=== PATIENT | female | born 1980 | race Caucasian/White ===

== ENCOUNTER 2024-12-15 21:03 | Inpatient (IN) | payer OTHER, SELFPAY ==
[2024-12-15] VITALS (22 sets, daily range): BP systolic 96–137; BP diastolic 62–93; PULSE 111–151; TEMP 36.9–37.2; O2SAT 80–100; BMI 18.9
--- NOTE | 2024-12-15 21:31 | ECG_ITS ---
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
--- NOTE | 2024-12-15 21:41 | ED.SOB1 ---
HPI - SOB/Dyspnea General Chief Complaint: Shortness of Breath/Dyspnea Stated Complaint: SOB Time Seen by Provider: 12/15/24 21:17 History of Present Illness HPI Narrative: 44-year-old female to the emergency department with chief complaint of shortness of breath. Patient reports she has been sick with a cough, body aches, chills for the last 48 hours. She has had increasing shortness of breath through this time as well. She has had a mild cough which is nonproductive. She denies a history of asthma or COPD but has had shortness of breath responsive to albuterol in the past per her report. She has been using the albuterol inhaler that she was prescribed over the last 48 hours with initially relief of symptoms but today none. Past medical history: Denies Related Data Home Medications ?Medication ?Instructions ?Recorded ?Confirmed albuterol sulfate 90 mcg/actuation inhalation 12/15/24 aerosol inhaler Allergies Allergy/AdvReac Type Severity Reaction Status Date / Time No Known Drug Allergies Allergy Verified 12/15/24 21:39 Review of Systems ROS Status of ROS 10 or more systems reviewed and unremarkable except as noted in history and below PFSH PFSH Social History Little interest or pleasure in doing things: not at all Feeling down, depressed, or hopeless: not at all Exam Narrative Exam Narrative: VITALS: I have reviewed the triage vital signs. GENERAL: Adult female in respiratory distress NEURO: Alert and oriented. Moves all extremities. Face is symmetric and expressive. EYES: PERRL. No scleral icterus or conjunctival injection. No discharge. HENT: Normocephalic, atraumatic. Hearing is grossly intact. Nares grossly patent and without discharge. Mucous membranes moist. NECK: No JVD. Patient moves neck without restriction. CARDIO: Rhythm regular. Tachycardic. No murmur, rub, or gallop. Pulses equal bilaterally in the upper and lower extremity. No lower extremity edema. PULM: Decreased air movement. Moderate increased work of breathing. Moderate conversational dyspnea. GI/: Abdomen is soft and non-tender. Normoactive bowel sounds. EXTREMITIES: Symmetric muscle bulk. No joint swelling. No clubbing, cyanosis, or deformity. SKIN: Warm and dry. Normal turgor. No rash or lesions appreciated. PSYCH: Mood, affect, and interaction is appropriate to the setting. Constitutional Vital Signs, click to edit/add: Last Vital Signs Temp 98.9 F 12/15/24 23:25 Pulse 116 H 12/16/24 00:40 Resp 23 H 12/16/24 00:40 BP 103/79 12/16/24 00:30 Pulse Ox 94 L 12/16/24 00:40 O2 Del Method Nasal Cannula 12/15/24 21:48 O2 Flow Rate 2 12/15/24 23:25 Course Vital Signs Vital signs: Vital Signs Pulse Oximetry 80 L 12/15/24 21:14 Temperature 98.9 F 12/15/24 23:25 Pulse Rate 116 H 12/16/24 00:40 Respiratory Rate 23 H 12/16/24 00:40 Blood Pressure 103/79 12/16/24 00:30 Pulse Oximetry 94 L 12/16/24 00:40 Oxygen Delivery Method Nasal Cannula 12/15/24 21:48 Oxygen Delivery Flow Rate 2 12/15/24 23:25 MDM - SOB/Dyspnea MDM Narrative Medical decision making narrative: 44-year-old female to the emergency department chief complaint of shortness of breath. Tachycardic, tachypneic, hypoxic in the 80s on room air. The patient is afebrile. Recent URI type symptoms. It sounds as though she has had bronchodilator responsive shortness of breath in the past. Will try stacked DuoNeb treatment, Solu-Medrol. Lab work with troponin, BNP, chest x-ray, EKG is ordered. Blood gas ordered. Flu and COVID swab. Patient agrees with this plan. Lab work reviewed and noted. No major abnormalities. Her lactate is slightly elevated. Chest x-ray without acute findings. EKG without evidence of ischemia. Her troponin is negative. BNP is normal. ABG was reviewed, no significant hypercapnia or acidosis. CT of the chest was ordered to rule out pulmonary embolism. No acute findings on the CTA. Patient remains on 2 L nasal cannula. Patient reevaluated several times. She is moving air much better. She has no conversational dyspnea and her work of breathing has improved significantly. She now has some very trace wheezes. Case discussed with the hospitalist. Plan for admission to the hospital. The patient agrees with this plan. Working diagnosis of asthma exacerbation. Medical Records Attestation: I reviewed the patient's medical records. Lab Data Attestation: I reviewed the patient's lab results. Labs: Lab Results 12/15/24 12/15/24 12/15/24 Range/Units 21:30 21:33 22:09 WBC 6.9 (4.0-11.0) 10^3/uL RBC 4.91 (4.20-5.40) 10^6/uL Hgb 13.1 (12.0-16.0) g/dL Hct 40.7 (36.0-48.0) % MCV 82.9 (81.0-99.0) fL MCH 26.7 (26.7-34.0) pg MCHC 32.2 (29.9-35.2) g/dL RDW 17.1 H (11.0-15.0) % Plt Count 178 (150-450) 10^3/uL MPV 12.2 (9.5-13.5) fL Neut % (Auto) 73.6 (43.0-75.0) % Lymph % (Auto) 10.3 L (20.5-60.0) % [place] % (Auto) 15.6 H (1.7-12.0) % Eos % (Auto) 0.1 L (0.9-7.0) % Baso % (Auto) 0.3 (0.2-2.0) % Neut # (Auto) 5.1 (1.4-6.5) 10^3/uL Lymph # (Auto) 0.7 L (1.2-3.8) 10^3/uL [place] # (Auto) 1.1 H (0.3-0.8) 10^3/uL Eos # (Auto) 0.0 (0.0-0.7) 10^3/uL Baso # (Auto) 0.0 (0.0-0.1) 10^3/uL Abs Immat Gran (auto) 0.01 (0.00-0.03) 10^3/uL Imm/Tot Granulo (auto) 0.1 (0.0-0.5) % PT 12.0 H (9.0-11.6) sec INR 1.15 APTT 31.0 (22.3-36.2) sec Puncture Site R radial ABG pH 7.344 L (7.350-7.450) ABG pCO2 41.1 (35.0-45.0) mmHg ABG pO2 97.4 (80.0-100.0) mmHg ABG HCO3 22.4 (22.0-26.0) mmol/L ABG O2 Saturation 95.9 % ABG Base Excess -3.3 L (-2.0-2.0) mmol/L [place]on Test Positive (POSITIVE) O2 Liters/Min 2 Sodium 135 L (136-145) mmol/L Potassium 3.5 (3.5-5.1) mmol/L Chloride 100 (98-107) mmol/L Carbon Dioxide 27.3 (21.0-32.0) mmol/L Anion Gap 11.2 BUN 10.0 (7.0-18.0) mg/dL Creatinine 0.79 (0.55-1.02) mg/dL Est GFR ( Amer) >60 (>=60 mL/min/1.73m^2) Est GFR (Non-Af Amer) >60 (>=60 mL/min/1.73m^2) BUN/Creatinine Ratio 12.7 Glucose 118 H (74-106) mg/dL Lactate 2.2 H* (0.4-2.0) mmol/L Calcium 8.8 (8.5-10.1) mg/dL Troponin I High Sens <4.0 L (4.0-51.3) pg/mL NT-Pro-B Natriuret Pep 192.0 (<=450.0) pg/mL Serum HCG, Qual Negative (NEGATIVE) Influenza Type A Ag Negative Influenza Type B Ag Negative SARS-CoV-2 Ag (CV2AG) Negative (NEGATIVE) 12/15/24 Range/Units 23:31 WBC (4.0-11.0) 10^3/uL RBC (4.20-5.40) 10^6/uL Hgb (12.0-16.0) g/dL Hct (36.0-48.0) % MCV (81.0-99.0) fL MCH (26.7-34.0) pg MCHC (29.9-35.2) g/dL RDW (11.0-15.0) % Plt Count (150-450) 10^3/uL MPV (9.5-13.5) fL Neut % (Auto) (43.0-75.0) % Lymph % (Auto) (20.5-60.0) % [place] % (Auto) (1.7-12.0) % Eos % (Auto) (0.9-7.0) % Baso % (Auto) (0.2-2.0) % Neut # (Auto) (1.4-6.5) 10^3/uL Lymph # (Auto) (1.2-3.8) 10^3/uL [place] # (Auto) (0.3-0.8) 10^3/uL Eos # (Auto) (0.0-0.7) 10^3/uL Baso # (Auto) (0.0-0.1) 10^3/uL Abs Immat Gran (auto) (0.00-0.03) 10^3/uL Imm/Tot Granulo (auto) (0.0-0.5) % PT (9.0-11.6) sec INR APTT (22.3-36.2) sec Puncture Site ABG pH (7.350-7.450) ABG pCO2 (35.0-45.0) mmHg ABG pO2 (80.0-100.0) mmHg ABG HCO3 (22.0-26.0) mmol/L ABG O2 Saturation % ABG Base Excess (-2.0-2.0) mmol/L Weston Test (POSITIVE) O2 Liters/Min Sodium (136-145) mmol/L Potassium (3.5-5.1) mmol/L Chloride (98-107) mmol/L Carbon Dioxide (21.0-32.0) mmol/L Anion Gap BUN (7.0-18.0) mg/dL Creatinine (0.55-1.02) mg/dL Est GFR ( Amer) (>=60 mL/min/1.73m^2) Est GFR (Non-Af Amer) (>=60 mL/min/1.73m^2) BUN/Creatinine Ratio Glucose (74-106) mg/dL Lactate 2.9 H* (0.4-2.0) mmol/L Calcium (8.5-10.1) mg/dL Troponin I High Sens (4.0-51.3) pg/mL NT-Pro-B Natriuret Pep (<=450.0) pg/mL Serum HCG, Qual (NEGATIVE) Influenza Type A Ag Influenza Type B Ag SARS-CoV-2 Ag (CV2AG) (NEGATIVE) ABG Data Attestation: I have reviewed the pertinent ABG results. Imaging Data CT scan - chest: Attestation: I have reviewed the pertinent imaging results. Radiologist's impression: Uploaded into PACS system ECG Data Attestation: I personally reviewed and interpreted this ECG as follows: (Sinus tachycardia rate of 117. No STEMI. Normal QTc at 375.) Critical Care Time Critical Care Time Critical Care Time: Yes Total Critical Care Time: 35 Attestation: Critical Care Procedure Note Authorized and Performed by: Rodrigo Sherwood DO Total critical care time: 35 min Due to a high probability of clinically significant, life threatening deterioration, the patient required my highest level of preparedness to intervene emergently and I personally spent this critical care time directly and personally managing the patient. This critical care time included obtaining a history; examining the patient; pulse oximetry; ordering and review of studies; arranging urgent treatment with development of a management plan; evaluation of patient's response to treatment; frequent reassessment; and, discussions with other providers. This critical care time was performed to assess and manage the high probability of imminent, life-threatening deterioration that could result in multi-organ failure. It was exclusive of separately billable procedures and treating other patients and teaching time. Please see MDM section and the rest of the note for further information on patient assessment and treatment. Discharge Plan Discharge Chief Complaint: Shortness of Breath/Dyspnea Clinical Impression: Acute hypoxemic respiratory failure, Asthma exacerbation Patient Disposition: Admitted as Observation Time of Disposition Decision: 01:20 Condition: Fair Prescriptions / Home Meds: No Action albuterol sulfate 90 mcg/actuation HFA aerosol inhaler INHALATION Print Language: Armenian Referrals: Physician,Non-Staff, MD [Primary Care Provider] - 1 week
[2024-12-15 21:45] LABS: Basophils Percent Auto 0.3 % (0.2-2.0); Eosinophils Percent Auto 0.1 % (0.9-7.0); Hematocrit 40.7 % (36.0-48.0); Hemoglobin 13.1 g/dL (12.0-16.0); Immature Granulocytes Abs Auto 0.01 10^3/uL (0.00-0.03); Immature Granulocytes Pct Auto 0.1 % (0.0-0.5); Lymphocytes Absolute Auto 0.7 10^3/uL (1.2-3.8); Lymphocytes Percent Auto 10.3 % (20.5-60.0); Mean Corpuscular HGB Conc 32.2 g/dL (29.9-35.2); Mean Corpuscular Hemoglobin 26.7 pg (26.7-34.0); Mean Corpuscular Volume 82.9 fL (81.0-99.0); Mean Platelet Volume 12.2 fL (9.5-13.5); Monocytes Absolute Auto 1.1 10^3/uL (0.3-0.8); Monocytes Percent Auto 15.6 % (1.7-12.0); Neutrophils Absolute Auto 5.1 10^3/uL (1.4-6.5); Neutrophils Percent Auto 73.6 % (43.0-75.0); Platelet Count 178 10^3/uL (150-450); Red Blood Count 4.91 10^6/uL (4.20-5.40); Red Cell Distribution Width 17.1 % (11.0-15.0); White Blood Count 6.9 10^3/uL (4.0-11.0)
--- NOTE | 2024-12-15 21:45 | PC.NURSE ---
this patient complains of shortness of breath, fever,body aches, cough onset 2 days ago, swabs x 2 collected and iv started with blood draw
[2024-12-15] MEDS: IPRATROPIUM/ALBUTEROL SULFATE 3 ML AMPUL.NEB 9 ML IH (21:48)
[2024-12-15 21:56] LABS: HCG Qualitative NEGATIVE (NEGATIVE); Internal Control Within Normal Limits
[2024-12-15 21:57] LABS: Anion Gap 11.2; BUN Creatinine Ratio 12.7; Calcium 8.8 mg/dL (8.5-10.1); Carbon Dioxide 27.3 mmol/L (21.0-32.0); Chloride 100 mmol/L (98-107); Estimated GFR (African America >60 (>=60 mL/min/1.73m^2); Estimated GFR (Non-African Ame >60 (>=60 mL/min/1.73m^2); Glucose 118 mg/dL (74-106); Potassium 3.5 mmol/L (3.5-5.1); Sodium 135 mmol/L (136-145)
[2024-12-15 22:04] LABS: Influenza Virus A Antigen Negative; Influenza Virus B Antigen Negative; Internal Control Within Normal Limits; SARS-CoV-2 Ag NEGATIVE (NEGATIVE)
[2024-12-15] MEDS: METHYLPREDNISOLONE SOD SUCC PF 125 MG/2 ML VIAL IVP (22:04)
[2024-12-15 22:08] LABS: Troponin I High Sensitivity <4.0 pg/mL (4.0-51.3)
[2024-12-15 22:13] LABS: INR 1.15; Lactate/Lactic Acid 2.2 mmol/L (0.4-2.0)
[2024-12-15 22:17] LABS: pH ABG 7.344 (7.350-7.450)
[2024-12-15 22:18] LABS: ABG PCO2 41.1 mmHg (35.0-45.0); Allen Test POSITIVE (POSITIVE); Base Excess ABG -3.3 mmol/L (-2.0-2.0); HCO3 ABG 22.4 mmol/L (22.0-26.0); Liters per Minute 2; O2 Mode NASAL CANNULA; Oxygen Saturation ABG 95.9 %; PO2 ABG 97.4 mmHg (80.0-100.0); Puncture Site R RADIAL
--- NOTE | 2024-12-15 22:57 | PC.NURSE ---
this patient awake and alert sitting upright on the bed, this patient said that she feels a little better. i did tell of the new order placed by Dr Sherwood. this patient voices no concerns and shows no signs of distress
[2024-12-16] VITALS (33 sets, daily range): BP systolic 100–146; BP diastolic 66–79; PULSE 87–124; TEMP 36.4–36.9; O2SAT 91–98; BMI 18.5
[2024-12-16 00:06] LABS: Lactate/Lactic Acid 2.9 mmol/L (0.4-2.0)
--- NOTE | 2024-12-16 00:44 | PC.NURSE ---
this patient sitting upright on the bed awake and alert, this patient says I am feeling better now patient aware that still waiting on ct results to come back this patient voices no concerns and shows no signs of distress
[2024-12-16 01:49] LABS: Internal Control Within Normal Limits; Respiratory Syncytial Virus Not Detected (NOT DETECTE)
--- NOTE | 2024-12-16 01:49 | PC.NURSE ---
this patient was transferred upstairs to room 218, this patient was awake and alert and voices no concerns and shows no signs of distress
[2024-12-16 06:35] LABS: Basophils Percent Auto 0.2 % (0.2-2.0); Hemoglobin 12.2 g/dL (12.0-16.0); Lymphocytes Absolute Auto 0.4 10^3/uL (1.2-3.8); Lymphocytes Percent Auto 7.3 % (20.5-60.0); Mean Corpuscular HGB Conc 32.1 g/dL (29.9-35.2); Mean Corpuscular Volume 80.9 fL (81.0-99.0); Mean Platelet Volume 12.2 fL (9.5-13.5); Monocytes Absolute Auto 0.4 10^3/uL (0.3-0.8); Monocytes Percent Auto 7.7 % (1.7-12.0); Neutrophils Absolute Auto 4.5 10^3/uL (1.4-6.5); Neutrophils Percent Auto 84.8 % (43.0-75.0); Platelet Count 181 10^3/uL (150-450); Red Cell Distribution Width 17.2 % (11.0-15.0); White Blood Count 5.3 10^3/uL (4.0-11.0)
[2024-12-16 06:48] LABS: Calcium 8.9 mg/dL (8.5-10.1); Carbon Dioxide 25.1 mmol/L (21.0-32.0); Chloride 100 mmol/L (98-107); Estimated GFR (African America >60 (>=60 mL/min/1.73m^2); Estimated GFR (Non-African Ame >60 (>=60 mL/min/1.73m^2); Glucose 141 mg/dL (74-106); Magnesium 2.1 mg/dL (1.8-2.4); Potassium 4.1 mmol/L (3.5-5.1); Sodium 135 mmol/L (136-145)
[2024-12-16] MEDS: METHYLPREDNISOLONE SOD SUCC PF 40 MG/ML VIAL IVP ×3 (08:28→20:17)
--- NOTE | 2024-12-16 08:36 | P.HP_ITS ---
HPI H&P: HPI History of Present Illness Chief complaint: ASTHMA EXACERBATION, ACUTE HYPOXEMIC RESP. FAILURE Narrative: 44-year-old female to the emergency department with chief complaint of shortness of breath. She is a former smoker quite 6 years ago. Patient reports she has been sick with a cough, body aches, chills for the last 48 hours. She has a history of asthma that has been responsive to albuterol when she gets sick. She has been using the albuterol inhaler that she was prescribed before without resolution of symptoms. She states her child recently had a cold. She is not on oxygen at home. ER Findings: Tachycardic, tachypneic, hypoxic in the 80s on room air. The patient is afebrile. Was given stacked DuoNeb treatment, Solu-Medrol. Her lactate is slightly elevated 2.2 then 2.9. Chest x-ray without acute findings. EKG without evidence of ischemia. Her troponin is negative <4. BNP is normal 192. ABG was reviewed, no significant hypercapnia or acidosis. CT of the chest was ordered to rule out pulmonary embolism. No acute findings on the CTA. Patient remains on 2 L nasal cannula. WBC's 5.3. Flu/covid and RSV negative Opioid HPI Opioid Management Most Recent Pain and Opioid Data: Last Pain Assessment 12/16/24 11:13 Last ORT Total Score 1 12/16/24 01:46 12/16/24 Last ORT Risk Category Low Risk 12/16/24 01:46 12/16/24 Review of Systems ROS Narrative ROS: a complete review of systems were reviewed with patient and are positive as below or listed in History of Chief Complaint. General: fever, chills, night sweats Head: no headache, trauma, visual changes, nausea or vomiting Skin: no reported rashes, itching or sores Eyes: no blurriness of vision Ears: no reported hearing loss, vertigo, earache, or tinnitus Throat: no sore throat, hoarseness, swelling of neck, or tongue pain Heart: no chest pain Lungs: shortness of breath and cough GI: diarrhea no vomiting/nausea Urinary: no urinary urgency, frequency or pain Neuro: no numbness or tingling HEM: no bleeding issues or bruising ENDO: no thyroid problems Psych: no anxiety or depression PFSH PFS Family History (Updated 12/16/24 @ 01:51 by Sarina Chapman RN) Other Family history of cancer Social History (Updated 12/16/24 @ 01:52 by Sarina Chapman RN) Within the past year, how often did you have a drink containing alcohol: monthly or less Within the past year, how many standard drinks containing alcohol did you have on a typical day: 1 or 2 Within the past year, how often did you have six or more drinks on one occasion: never Total score: 0 Score interpretation: A score less than 3 is consistent with normal alcohol consumption. Smoking status: Former smoker Non-prescribed substance use: denies use Highest level of school completed/degree received: high school graduate Are you now , , , , never or living with a partner: living with partner In a typical week, how many times do you talk on the telephone with family, friends, or neighbors: 3 or more times per week How often do you get together with friends or relatives: 3 or more times per week Little interest or pleasure in doing things: not at all Feeling down, depressed, or hopeless: not at all Do you think of yourself as: straight/heterosexual Gender Identity: female Meds Home Medications and Allergies Home Medications ?Medication ?Instructions ?Recorded ?Confirmed ?Type albuterol sulfate 90 mcg/actuation 2 puff inhalation Q4H PRN 12/15/24 12/16/24 History aerosol inhaler shortness of breath or wheezing Allergies Allergy/AdvReac Type Severity Reaction Status Date / Time No Known Drug Allergies Allergy Verified 12/15/24 21:39 Exam Narrative Exam Narrative: General: Patient is alert, and oriented to person, place and time with normal affect, very short of breath with conversing, Tripoding on bed with heavy breathing through the nose Skin: no visible rashes, or ulcers Head: atraumatic, acephalic Eyes: PERRLA, no nystagmus present, conjunctiva clear, no scleral icterus Ears: normal gross auditory acuity Heart: Normal rate and rhythm, no murmurs/rubs/gallops Lungs: audible wheezes, no crackles Abdomen: Normal audible bowel sounds, no distension, No palpable masses, no organomegaly, no rebound/guarding/ or rigidity Musculoskeletal: no swelling bilateral lower extremities Neuro: CN II-X grossly intact Constitutional Vital Signs, click to edit/add: Last Vital Signs Temp 98.1 F 12/16/24 08:18 Pulse 109 H 12/16/24 08:18 Resp 20 12/16/24 08:18 BP 104/75 12/16/24 08:18 Pulse Ox 92 L 12/16/24 08:18 O2 Del Method Nasal Cannula 12/16/24 08:18 O2 Flow Rate 2 12/16/24 08:18 Results Labs Labs: Short CBC 12/15/24 12/16/24 Range/Units 21:30 06:11 WBC 6.9 5.3 (4.0-11.0) 10^3/uL Hgb 13.1 12.2 (12.0-16.0) g/dL Hct 40.7 38.0 (36.0-48.0) % Plt Count 178 181 (150-450) 10^3/uL BMP 12/15/24 12/16/24 21:30 06:11 Sodium 135 L 135 L Potassium 3.5 4.1 Chloride 100 100 Carbon Dioxide 27.3 25.1 BUN 10.0 9.0 Creatinine 0.79 0.53 L Glucose 118 H 141 H Calcium 8.8 8.9 ABG ABG results: 12/15/24 22:09 ABG pH 7.344 L ABG pCO2 41.1 ABG pO2 97.4 ABG HCO3 22.4 ABG O2 Saturation 95.9 ABG Base Excess -3.3 L Assessment and Plan Assessment and Plan (1) Asthma exacerbation: Assessment and Plan: start pulmicort nebs, duonebs scheduled and PRN albuterol. Continue with Solu- Medrol 40mg q6 hours IV, I have added Azithromycin and Rocephin for possible superimposed COPD exacerbation given her long smoking history. OPEP. Normal magnesium Qualifiers: Asthma persistence: persistent Asthma severity: severe Qualified Code(s): J45.51 - Severe persistent asthma with (acute) exacerbation (2) Acute hypoxemic respiratory failure: Assessment and Plan: secondary to #1, CTA negative for acute PE, Viral testing negative for flu/covid/rsv. Documented oxygen saturations to 80's on room air, requiring 2l via NC oxygen to maintain saturations >90%; normal cariac enzymes (3) Lactic acid acidosis: Assessment and Plan: elevated lactate secondary to #1, Added LR @125 Plan Patient is a full code continue Lovenox for DVT prophylaxis Patient is inpatient status and is expected to stay 2-3 days for her acute asthma exacerbation with respiratory failure
[2024-12-16] MEDS: LACTATED RINGER'S SOLUTION 1,000 ML 125 ML IV ×2 (10:03→19:22)
[2024-12-16] MEDS: AZITHROMYCIN 500 MG in 0.9 % SODIUM CHLORIDE 250 ML 250 MG IV (10:04)
[2024-12-16] MEDS: CEFTRIAXONE 1,000 MG in 0.9 % SODIUM CHLORIDE 50 ML 100 MG IV (10:04)
[2024-12-16] MEDS: BUDESONIDE 0.5 MG/2 ML AMPULE NEB IH ×2 (10:24→22:44)
[2024-12-16] MEDS: IPRATROPIUM/ALBUTEROL SULFATE 3 ML AMPUL.NEB IH ×3 (10:24→22:44)
--- NOTE | 2024-12-16 12:01 | CM.NOTE ---
Rounds made with Dr. Henning. Dr. Henning reviews plan of care. Ms. Ramirez verbalizes understanding.
--- NOTE | 2024-12-16 13:15 | SWNOTE1 ---
Pt is on 2 liters of oxygen here at hospital at this time, no oxygen at home.
[2024-12-16 22:39] LABS: A. calcoaceticus-baumannii Cpx NOT DETECTED (NOT DETECTE); Bacteroides fragilis NOT DETECTED (NOT DETECTE); Candida albicans NOT DETECTED (NOT DETECTE); Candida auris NOT DETECTED (NOT DETECTE); Candida glabrata NOT DETECTED (NOT DETECTE); Candida krusei NOT DETECTED (NOT DETECTE); Candida parapsilosis NOT DETECTED (NOT DETECTE); Candida tropicalis NOT DETECTED (NOT DETECTE); Cryptococcus neoformans/gattii NOT DETECTED (NOT DETECTE); Enterobacter cloacae complex NOT DETECTED (NOT DETECTE); Enterobacterales NOT DETECTED (NOT DETECTE); Enterococcus faecalis NOT DETECTED (NOT DETECTE); Enterococcus faecium NOT DETECTED (NOT DETECTE); Haemophilus influenzae NOT DETECTED (NOT DETECTE); Klebsiella aerogenes NOT DETECTED (NOT DETECTE); Klebsiella pneumoniae group NOT DETECTED (NOT DETECTE); Listeria monocytogenes NOT DETECTED (NOT DETECTE); Neisseria meningitidis NOT DETECTED (NOT DETECTE); Proteus spp. NOT DETECTED (NOT DETECTE); Pseudomonas aeruginosa NOT DETECTED (NOT DETECTE); Salmonella spp. NOT DETECTED (NOT DETECTE); Serratia marcescens NOT DETECTED (NOT DETECTE); Staphylococcus epidermidis NOT DETECTED (NOT DETECTE); Staphylococcus lugdunensis NOT DETECTED (NOT DETECTE); Stenotrophomonas maltophilia NOT DETECTED (NOT DETECTE); Streptococcus agalactiae NOT DETECTED (NOT DETECTE); Streptococcus pneumoniae NOT DETECTED (NOT DETECTE); Streptococcus pyogenes NOT DETECTED (NOT DETECTE); Streptococcus spp. NOT DETECTED (NOT DETECTE)
[2024-12-17] VITALS (21 sets, daily range): BP systolic 107–134; BP diastolic 66–79; PULSE 78–112; TEMP 36.4–37.1; O2SAT 89–94
[2024-12-17 00:02] LABS: Staphylococcus spp. DETECTED (NOT DETECTE)
[2024-12-17 00:03] LABS: Source Blood
[2024-12-17] MEDS: METHYLPREDNISOLONE SOD SUCC PF 40 MG/ML VIAL IVP ×4 (02:09→19:50)
[2024-12-17] MEDS: LACTATED RINGER'S SOLUTION 1,000 ML 125 ML IV (03:25)
[2024-12-17] MEDS: IPRATROPIUM/ALBUTEROL SULFATE 3 ML AMPUL.NEB IH ×4 (04:38→22:50)
[2024-12-17 05:44] LABS: Basophils Percent Auto 0.1 % (0.2-2.0); Eosinophils Percent Auto 0.1 % (0.9-7.0); Hematocrit 35.7 % (36.0-48.0); Hemoglobin 11.1 g/dL (12.0-16.0); Immature Granulocytes Abs Auto 0.03 10^3/uL (0.00-0.03); Immature Granulocytes Pct Auto 0.3 % (0.0-0.5); Lymphocytes Absolute Auto 0.7 10^3/uL (1.2-3.8); Lymphocytes Percent Auto 6.5 % (20.5-60.0); Mean Corpuscular HGB Conc 31.1 g/dL (29.9-35.2); Mean Corpuscular Hemoglobin 25.8 pg (26.7-34.0); Mean Corpuscular Volume 82.8 fL (81.0-99.0); Monocytes Absolute Auto 0.4 10^3/uL (0.3-0.8); Monocytes Percent Auto 3.7 % (1.7-12.0); Neutrophils Absolute Auto 9.9 10^3/uL (1.4-6.5); Neutrophils Percent Auto 89.3 % (43.0-75.0); Platelet Count 201 10^3/uL (150-450); Red Blood Count 4.31 10^6/uL (4.20-5.40); Red Cell Distribution Width 17.2 % (11.0-15.0)
[2024-12-17 05:55] LABS: Anion Gap 13.5; BUN Creatinine Ratio 19.4; Carbon Dioxide 26.1 mmol/L (21.0-32.0); Chloride 104 mmol/L (98-107); Estimated GFR (African America >60 (>=60 mL/min/1.73m^2); Estimated GFR (Non-African Ame >60 (>=60 mL/min/1.73m^2); Glucose 143 mg/dL (74-106); Magnesium 2.1 mg/dL (1.8-2.4); Potassium 3.6 mmol/L (3.5-5.1); Sodium 140 mmol/L (136-145)
--- NOTE | 2024-12-17 07:57 | PM.PN ---
Progress Note: Subjective Subjective Interval history: Patient feels better than yesterday. Less short of breath with exertion and rest. She denies fevers. Less coughing. No other complaints. Exam Narrative Exam Narrative: General: Patient is alert, and oriented to person, place and time with normal affect, proper hygiene Skin: no visible rashes, or ulcers Head: atraumatic, acephalic Eyes: PERRLA, no nystagmus present, conjunctiva clear, no scleral icterus Ears: normal gross auditory acuity Heart: Normal rate and rhythm, no murmurs/rubs/gallops Lungs: audible wheezes Abdomen: Normal audible bowel sounds, no distension, No palpable masses, no organomegaly, no rebound/guarding/ or rigidity Musculoskeletal: no swelling bilateral lower extremities Neuro: CN II-X grossly intact Constitutional Vital Signs, click to edit/add: Last Vital Signs Temp 98.0 F 12/17/24 03:03 Pulse 112 H 12/17/24 07:55 Resp 18 12/17/24 04:38 BP 110/73 12/17/24 03:03 Pulse Ox 93 L 12/17/24 04:38 O2 Del Method Nasal Cannula 12/17/24 04:38 O2 Flow Rate 1 12/17/24 04:38 Progress Note: Objective Labs Labs: Short CBC 12/17/24 Range/Units 05:13 WBC 11.0 (4.0-11.0) 10^3/uL Hgb 11.1 L (12.0-16.0) g/dL Hct 35.7 L (36.0-48.0) % Plt Count 201 (150-450) 10^3/uL BMP 12/17/24 05:13 Sodium 140 Potassium 3.6 Chloride 104 Carbon Dioxide 26.1 BUN 13.0 Creatinine 0.67 Glucose 143 H Calcium 9.0 Progress Note: A&P Assessment and Plan (1) Asthma exacerbation: Assessment and Plan: pulmicort nebs, duonebs scheduled and PRN albuterol. Continue with Solu-Medrol 40mg q6 hours IV, continue Azithromycin and Rocephin for possible superimposed COPD exacerbation given her long smoking history. OPEP. Normal magnesium Qualifiers: Asthma persistence: persistent Asthma severity: severe Qualified Code(s): J45.51 - Severe persistent asthma with (acute) exacerbation (2) Acute hypoxemic respiratory failure: Assessment and Plan: secondary to #1, CTA negative for acute PE, Viral testing negative for flu/covid/rsv. Documented oxygen saturations to 80's on room air, requiring 1l via NC oxygen to maintain saturations >90%; normal cardiac enzymes (3) Lactic acid acidosis: Assessment and Plan: improved with IVF, stop fluids (4) Bacteremia due to Staphylococcus: Assessment and Plan: positive rapid blood culture, awaiting sensitivites, positive for staph sp; On rocephin will switch to Ancef 2g every 8 hours . Could also be skin contaminant on blood culture given 1/2 bottles; will check Echo Plan Patient is a full code continue Lovenox for DVT prophylaxis Patient will likely require 1-2 more days of hospital necessary care
--- NOTE | 2024-12-17 08:45 | CM.NOTE ---
Rounds made with Dr. Henning, pt continues to require 1L NC. Pt is up ad tobi in room, no discharge today. RN at bedside and will attempt to wean pt off oxygen.
[2024-12-17] MEDS: CEFTRIAXONE 1,000 MG in 0.9 % SODIUM CHLORIDE 50 ML 100 MG IV (09:29)
--- NOTE | 2024-12-17 09:30 | CA_ITS ---
Patient Name: LUCIANO ORNELAS MR#: [id number] : 1980 Exam Date: 12/17/2024 Ordering Doctor: POWER HACKETT . ECHOCARDIOGRAM REPORT PROCEDURE: CA ECHO DOPPLER COMPLETE INDICATIONS: bacteremia, hypoxia COMPARISON: None. DESCRIPTION: COMPLETE ECHOCARDIOGRAM Real-time transthoracic echocardiography with 2D, M-mode, spectral and color flow Doppler performed. QUALITY: Technical quality was good. LEFT VENTRICLE: Normal chamber size. Normal left ventricular wall thickness. Global left ventricular systolic function is normal. LV EF: Estimated left ventricular ejection fraction is 60-65%. DIASTOLIC: Normal diastolic function. ATRIAL SEPTUM: LEFT ATRIUM: Normal chamber size. RIGHT ATRIUM: Normal chamber size. RIGHT VENTRICLE: Normal chamber size. Normal right ventricular systolic function. TRICUSPID VALVE: Normal mobility and thickness. No vegetations are present. No stenosis with no regurgitation. No evidence of pulmonary hypertension. RVSP 23 mmHg MITRAL VALVE: Normal mobility and thickness. No vegetations are present. No evidence of mitral valve stenosis. There is no mitral annular calcification. No mitral regurgitation. AORTIC VALVE: Normal trileaflet appearance. No visible sclerosis. Normal leaflet mobility. No vegetations are present. No evidence of aortic valve stenosis. No aortic regurgitation. AORTIC ROOT: Normal diameter and appearance. PULMONIC VALVE: Normal thickness and mobility. No stenosis. No regurgitation. No vegetations are present. PERICARDIUM: Small to moderate anterior pericardial effusion. IVC: Collapses with inspirations. Normal size. PLEURA: CONCLUSION: 1. Normal ventricular size and systolic function. LVEF is 60-65%. 2. Normal diastolic function. 3. No significant valvular dysfunction. 4. Normal right sided pressures. 5. Small to moderate anterior pericardial effusion. Adult Echocardiography Procedure Report Left Ventricle LVEDD (3.7 - 5.6 cm): 4.40 cm LVESD (2.2 - 4.0 cm): 3.03 cm LVIVS thickness (0.6 - 1.2 cm): 0.73 cm LVPW thickness (0.5 - 1.0 cm): 0.75 cm e': 0.13 m/s E - e': 4.99 LVOT Max Gradient: 4.19 mm[Hg] LVOT Area (cm2): 1.02 m/s Peak Velocity (LVOT): 1.02 m/s Mean Velocity (LVOT): 0.68 m/s LVOT Diameter 1.86 cm Left Atrium LA Volume Index (2D A2C): 30.74 ml/m2 Left Atrium Systolic Dimension: 2.68 cm Mitral Valve MV E to A Ratio: 1.01 Mitral Valve A-Wave Peak Velocity: 0.63 m/s Mitral Valve E-Wave Peak Velocity: 0.64 m/s Right Ventricle RV Internal Diastolic Dimension: 2.85 cm Aorta AO Root Diam: 3.30 cm Ascending Ao Diam: 2.55 cm Aortic Valve AoV Area (Peak Patrick): 2.20 cm2, 2.20 cm2 AoV Area (VTI): 2.33 cm2, 2.33 cm2 Peak Velocity(Antegrade Flow): 1.26 m/s Peak Gradient(Antegrade Flow): 6.34 mm[Hg] Mean Velocity(Antegrade Flow): 0.88 m/s Mean Gradient(Antegrade Flow): 3.45 mm[Hg] Velocity Time Integral: 25.91 cm Tricuspid Valve Peak Velocity (Regurgitant Flow): 2.26 m/s Pulmonic Valve Mean Gradient: 1.56 mm[Hg], 1.56 mm[Hg], 1.72 mm[Hg] Mean Velocity: 0.59 m/s, 0.60 m/s, 0.63 m/s Peak Velocity: 0.80 m/s, 0.79 m/s Peak Gradient: 2.61 mm[Hg], 2.43 mm[Hg], 2.61 mm[Hg], 2.48 mm[Hg] Right Atrium Right Atrium Systolic Pressure: 21.62 ml, 21.62 ml Dictated by: Michelet Webb M.D. on 12/17/2024 at 18:36 Approved by: Michelet Webb M.D. on 12/17/2024 at 18:40
[2024-12-17] MEDS: CEFAZOLIN SODIUM/DEXTROSE,ISO 2 GM/50 ML PIGGYBACK IV ×2 (10:32→17:25)
[2024-12-17] MEDS: BUDESONIDE 0.5 MG/2 ML AMPULE NEB IH ×2 (10:52→22:50)
[2024-12-17] MEDS: AZITHROMYCIN 500 MG in 0.9 % SODIUM CHLORIDE 250 ML 250 MG IV (11:17)
[2024-12-18] VITALS (7 sets, daily range): BP systolic 112–115; BP diastolic 68–69; PULSE 65–105; TEMP 36.6–36.8; O2SAT 92–93
[2024-12-18] MEDS: METHYLPREDNISOLONE SOD SUCC PF 40 MG/ML VIAL IVP ×2 (03:55→08:37)
[2024-12-18] MEDS: CEFAZOLIN SODIUM/DEXTROSE,ISO 2 GM/50 ML PIGGYBACK IV ×2 (03:55→09:14)
[2024-12-18] MEDS: IPRATROPIUM/ALBUTEROL SULFATE 3 ML AMPUL.NEB IH (05:45)
[2024-12-18 06:01] LABS: Hematocrit 30.9 % (36.0-48.0); Hemoglobin 9.8 g/dL (12.0-16.0); Immature Granulocytes Abs Auto 0.05 10^3/uL (0.00-0.03); Immature Granulocytes Pct Auto 0.4 % (0.0-0.5); Lymphocytes Absolute Auto 0.8 10^3/uL (1.2-3.8); Lymphocytes Percent Auto 7.5 % (20.5-60.0); Mean Corpuscular HGB Conc 31.7 g/dL (29.9-35.2); Mean Corpuscular Hemoglobin 26.2 pg (26.7-34.0); Mean Corpuscular Volume 82.6 fL (81.0-99.0); Monocytes Absolute Auto 0.6 10^3/uL (0.3-0.8); Neutrophils Absolute Auto 9.7 10^3/uL (1.4-6.5); Neutrophils Percent Auto 87.1 % (43.0-75.0); Platelet Count 202 10^3/uL (150-450); Red Blood Count 3.74 10^6/uL (4.20-5.40); Red Cell Distribution Width 17.6 % (11.0-15.0); White Blood Count 11.1 10^3/uL (4.0-11.0)
[2024-12-18 06:25] LABS: Anion Gap 12.8; BUN Creatinine Ratio 21.7; Calcium 8.7 mg/dL (8.5-10.1); Carbon Dioxide 25.9 mmol/L (21.0-32.0); Chloride 106 mmol/L (98-107); Estimated GFR (African America >60 (>=60 mL/min/1.73m^2); Estimated GFR (Non-African Ame >60 (>=60 mL/min/1.73m^2); Glucose 125 mg/dL (74-106); Magnesium 2.3 mg/dL (1.8-2.4); Potassium 3.7 mmol/L (3.5-5.1); Sodium 141 mmol/L (136-145)
[2024-12-18] MEDS: AZITHROMYCIN 500 MG in 0.9 % SODIUM CHLORIDE 250 ML 250 MG IV (09:15)
--- NOTE | 2024-12-18 09:15 | PM.DS1 ---
DS: Providers Provider Date of admission: 12/16/24 09:00 Primary care physician: Non-Staff PhysicianMD DS: Diagnosis Discharge Diagnosis (1) Asthma exacerbation: Qualifiers: Asthma persistence: persistent Asthma severity: severe Qualified Code(s): J45.51 - Severe persistent asthma with (acute) exacerbation (2) Acute hypoxemic respiratory failure: (3) Lactic acid acidosis: (4) Bacteremia due to Staphylococcus: Plan (1) Asthma exacerbation: Being at the time of discharge (2) Acute hypoxemic respiratory failure: Resolved at the time of discharge (3) Lactic acid acidosis: Improved at the time of discharge (4) Bacteremia due to Staphylococcus: Specificity not returned at the time of discharge, possible contaminant (5) hyponatremia-improved at the time of discharge (6) drug-induced hyperglycemia-improved at the time of discharge DS: Summary Hospital Course Hospital Course: Patient has a history of asthma, admitted with acute exacerbation of asthma and acute hypoxia requiring at least 2 L of supplemental oxygenation he was given IV antibiotics, steroids, aerosol treatments, she is improving at the time of discharge, she has been able to wean off of supplemental oxygen over the last 12 hours, at this point if she ambulates in the hallways without hypoxia she will be discharged home in improving condition. Medications see list. Can follow-up with me in the office if she is looking to establish with a new provider Time Spent with Patient Time attestation: Total time spent providing and/or coordinating discharge services: Exam Constitutional Vital Signs, click to edit/add: Last Vital Signs Temp 98.3 F 12/18/24 08:03 Pulse 82 12/18/24 08:03 Resp 16 12/18/24 08:03 BP 115/69 12/18/24 08:03 Pulse Ox 93 L 12/18/24 08:03 O2 Del Method Room Air 12/18/24 08:03 O2 Flow Rate 1 12/17/24 16:25 Documenting provider has reviewed patient's vital signs: yes Common normals: no apparent distress Lymph Lymphatic: no lymphadenopathy noted Chest Common normals: inspection of chest normal and palpation of chest normal Respiratory Common normals: normal respiratory effort and no retractions Cardio Common normals: regular rate and regular rhythm GI Common normals: Normal to inspection, nondistended, normoactive bowel sounds present and soft to palpation DS: Data Data Completed and Pending Labs on day of discharge: Labs from last 24 hours 12/18/24 05:48 WBC 11.1 H RBC 3.74 L Hgb 9.8 L Hct 30.9 L MCV 82.6 MCH 26.2 L MCHC 31.7 RDW 17.6 H Plt Count 202 MPV 12.0 Neut % (Auto) 87.1 H Lymph % (Auto) 7.5 L [place] % (Auto) 5.0 Eos % (Auto) 0.0 L Baso % (Auto) 0.0 L Neut # (Auto) 9.7 H Lymph # (Auto) 0.8 L [place] # (Auto) 0.6 Eos # (Auto) 0.0 Baso # (Auto) 0.0 Abs Immat Gran (auto) 0.05 H Imm/Tot Granulo (auto) 0.4 Sodium 141 Potassium 3.7 Chloride 106 Carbon Dioxide 25.9 Anion Gap 12.8 BUN 13.0 Creatinine 0.60 Est GFR ( Amer) >60 Est GFR (Non-Af Amer) >60 BUN/Creatinine Ratio 21.7 Glucose 125 H Calcium 8.7 Magnesium 2.3 Preliminary micro results at discharge 12/15/24 21:51 Blood Culture Result 2 - Preliminary Blood 12/15/24 21:43 Blood Culture Result 1 - Preliminary Blood NO GROWTH AT 36-48 HOURS. FINAL TO FOLLOW. Discharge Plan Discharge Disposition: Home, Self-Care Condition: Fair Discharge Medications: New albuterol sulfate [Ventolin HFA] 90 mcg/actuation HFA aerosol inhaler 2 inh inhalation Q6H PRN (Reason: shortness of breath or wheezing) Qty: 8.5 11RF cephalexin 500 mg capsule 1,000 mg PO BID Qty: 40 0RF prednisone 10 mg tablet 40 mg PO DAILY Qty: 32 0RF Rx Instructions: 4/day for 3 days, 3/day for 3 days, 2/day for 3 days, 1/day for 3 days, 1/2 /day for 4 days Continued albuterol sulfate 90 mcg/actuation HFA aerosol inhaler 2 puff INHALATION Q4H PRN (Reason: shortness of breath or wheezing) Activity: increase activity as tolerated Diet: advance to your usual diet Print Language: Citizen Of [place] Patient Instructions: Asthma (DC) Forms: Portal Instructions Follow Up Appointments: Please choose a physician to set up new patient appt as soon as possible. Karo Chaves NP is accepting new patients : [phone]
--- NOTE | 2024-12-21 13:27 | CM.DCFOLLOWU ---
2nd attempt 12/21/24, no answer
--- NOTE | 2024-12-22 14:35 | CM.DCFOLLOWU ---
3rd attempt 12/22/24, no answer
== END 2024-12-18 11:25 | disposition home or self-care (01) | DRG 189 ==
LOC: ER 12-16 01:20 → MS 12-16 01:41
PROVIDERS: Registered Nurse; Admitting Provider Family Medicine; Emergency Provider Student in an Organized Health Care Education/Training Program; Visit Provider Family Medicine
DX: J96.21 Acute and chronic respiratory failure with hypoxia (principal); J45.51 Severe persistent asthma with (acute) exacerbation; E87.20 Acidosis, unspecified; E87.1 Hypo-osmolality and hyponatremia; Z87.891 Personal history of nicotine dependence; R73.9 Hyperglycemia, unspecified; T50.905A Adverse effect of unspecified drugs, medicaments and biological substances, initial encounter
CPT/HCPCS: 36415; 36600; 71045; 71275; 80048; 82805; 83605; 83735; 83880; 84484; 84703; 85025; 85610; 85730; 87040; 87150; 87186; 87420; 87804; 87811; 93005; 93306; 94640; 94667; 94668; 94761; 96374; 99285; J0456; J0690; J0696; J2919; Q9967

== ENCOUNTER 2025-01-11 15:20 | Outpatient (OUT) | payer OTHER, SELFPAY ==
--- NOTE | 2025-01-11 15:37 | MM_ITS ---
Patient Name: LUCIANO ORNELAS MR#: [id number] : 1980 Exam Date: 01/11/2025 Ordering Doctor: DR Sumanth Roper . RADIOLOGY REPORT PROCEDURE: MM TOMOSYNTHESIS SCREENING BI COMPARISON: None. INDICATIONS: Screening Calculator Name NCI Breast Cancer Risk Assessment Tool 5 Year Breast Cancer Risk 0.70% Lifetime Breast Cancer Risk 8.60% Personal Breast Cancer No Personal Ovarian Cancer No Treatments None Family Cancers Aunt-maternal with breast cancer at age ~60; Father with prostate cancer at age 62. LOCATION: [facility] BREAST COMPOSITION: The breasts are heterogeneously dense,which may obscure small masses. FINDINGS: DIAGNOSTIC CATEGORY 1--NEGATIVE. RIGHT BREAST: No significant suspicious finding. LEFT BREAST: No significant suspicious finding. RECOMMENDATIONS: ROUTINE MAMMOGRAM AND CLINICAL EVALUATION IN 12 MONTHS. PLEASE NOTE: A NORMAL MAMMOGRAM DOES NOT EXCLUDE THE POSSIBILITY OF BREAST CANCER. A CLINICALLY SUSPICIOUS PALPABLE LUMP SHOULD BE BIOPSIED. Dictated by: Malvin Thapa DO on 01/11/2025 at 16:48 Approved by: Malvin Thapa DO on 01/11/2025 at 16:54
[2025-01-11 15:55] LABS: Estimated Average Glucose 114 mg/dL; Glycohemoglobin A1C 5.6 % (4.5-6.2)
[2025-01-11 16:24] LABS: Alanine Aminotransferase 22 U/L (14-59); Albumin Globulin Ratio 1.2; Albumin Level 3.9 g/dL (3.4-5.0); Alkaline Phosphatase 67 U/L (46-116); Anion Gap 11.8; Aspartate Amino Transferase 20 U/L (15-37); BUN Creatinine Ratio 15.9; Bilirubin Total 0.8 mg/dL (0.2-1.0); Calcium 8.8 mg/dL (8.5-10.1); Carbon Dioxide 27.8 mmol/L (21.0-32.0); Chloride 102 mmol/L (98-107); Chol HDL Ratio 3.3; Cholesterol 221 mg/dL (<=200); Estimated GFR (African America >60 (>=60 mL/min/1.73m^2); Estimated GFR (Non-African Ame >60 (>=60 mL/min/1.73m^2); Free T3 2.32 pg/mL (2.18-3.98); Globulin 3.2 g/dL; Glucose 81 mg/dL (74-106); HDL Cholesterol 66 mg/dL (40-60); Potassium 3.6 mmol/L (3.5-5.1); Sodium 138 mmol/L (136-145); Thyroid Stimulating Hormone 2.015 uIU/mL (0.358-3.740); Total Protein 7.1 g/dL (6.4-8.2); Triglycerides 74 mg/dL (<=150); VLDL CHOLESTEROL 14.8 mg/dL
== END 2025-01-11 15:21 | disposition home or self-care (01) ==
LOC: MAMMO 15:21
PROVIDERS: PCP Family Medicine; Visit Provider Family Medicine
DX: Z00.00 Encounter for general adult medical examination without abnormal findings (principal); Z80.3 Family history of malignant neoplasm of breast; Z80.42 Family history of malignant neoplasm of prostate
CPT/HCPCS: 36415; 77063; 77067; 80053; 80061; 83036; 84436; 84443; 84481